=== PATIENT | female | born 1950 | race Caucasian/White ===

== ENCOUNTER → 2025-01-26 | Outpatient (CLI) | payer MEDICARE ==
[2025-01-27 10:28] LABS: Alanine Aminotransfer (ALT/SGP 25 U/L (12-78); Albumin, Blood 4.2 g/dL (3.4-5.0); Albumin/Globulin Ratio 1.6 (0.8-1.8); Anion Gap 12 mmol/L (3-11); Aspartate Aminotrans (AST/SGOT 21 U/L (12-37); Bilirubin, Total 0.6 mg/dL (0.1-1.0); Blood Urea Nitrogen 19 mg/dL (8-24); CHOL/HDL RATIO 3.6; CO2, Blood 23 mmol/L (21-32); Calcium, Blood 8.6 mg/dL (8.5-10.1); Chloride, Blood 105 mmol/L (98-108); Cholesterol 211 mg/dL (50-200); Creatinine, Blood 0.93 mg/dL (0.40-1.00); Globulin, Blood 2.7 g/dL (2.2-4.0); Glucose, Blood 134 mg/dL (70-99); HDL Cholesterol 59 mg/dL (>39); LDL/HDL RATIO 1.7; Low Density Lipoprotein Chol 101 mg/dL (0-110); Potassium, Blood 3.9 mmol/L (3.5-5.5); Sodium, Blood 136 mmol/L (136-145); Total Protein, Blood 6.9 g/dL (6.4-8.2); Triglycerides 256 mg/dL (30-160); Very Low Density Lipoprot Chol 51 mg/dL (6-32)
== END ==
LOC: LAB 14:08 → LAB SHORT 14:08
PROVIDERS: Nurse Practitioner Family
DX: E11.69 Type 2 diabetes mellitus with other specified complication (principal); E78.5 Hyperlipidemia, unspecified; Z88.8 Allergy status to other drugs, medicaments and biological substances
CPT/HCPCS: 80053; 80061

== ENCOUNTER 2025-03-19 11:37 | Day surgery (SDC) | payer MEDICARE ==
[~2025-03-19] VITALS: Ht 165.1 cm; Wt 74.2 kg
[~2025-03-19 11:37] MED LIST: Lidocaine HCl 2% 10 ML SDA ONE
[2025-03-19] MEDS ORDERED: BASAGLAR K100 UNIT/8 (11:57)
[2025-03-19] MEDS ORDERED: LISI20 (11:57)
[2025-03-19] MEDS ORDERED: DEXCOM G7 SENS1 EACH (11:58)
[2025-03-19] MEDS ORDERED: VALA500 (11:58)
[2025-03-19] MEDS ORDERED: VITAMIN D350 MC3 (11:58)
[2025-03-19] MEDS ORDERED: POLY500 (11:59)
[2025-03-19] MEDS ORDERED: NIAC500 (11:59)
[2025-03-19 12:29] VITALS: BP 146/62
[2025-03-19] MEDS ORDERED: CeFAZolin Sodium 2,000 MG VIAL ONE (12:40)
[2025-03-19] MEDS ORDERED: Phenylephrine HCl 100 MCG/ML-NS 10MLSYR (1MG/10ML) ONE (13:14)
[2025-03-19] MEDS ORDERED: Ondansetron HCl 2 MG / ML 2ML Vial ONE (13:14)
[2025-03-19] MEDS ORDERED: Dexamethasone Sod Phos 10 MG/ML 1ML VIAL ONE (13:14)
[2025-03-19] MEDS ORDERED: FentaNYL Citrate 50 MCG/ML 2 ML Injection ONE (13:40)
[2025-03-19] MEDS ORDERED: Lidocaine HCl 2% 10 ML SDA ONE (13:45)
[2025-03-19] MEDS ORDERED: Bupivacaine 0.5% W/EPI 1:200000 SDV 10ML INJ ONE (13:55)
== END 2025-03-19 16:16 | disposition home or self-care (01) ==
LOC: ORSCSDS 11:37
PROVIDERS: Podiatrist Foot & Ankle Surgery
PROC: 0Q8P0ZZ Division of Left Metatarsal, Open Approach (ICD-10-PCS; principal; 2025-03-19 13:00)
PROC: 0QSR04Z Reposition Left Toe Phalanx with Internal Fixation Device, Open Approach (ICD-10-PCS; principal; 2025-03-19 13:00)
PROC: 0QSP04Z Reposition Left Metatarsal with Internal Fixation Device, Open Approach (ICD-10-PCS; principal; 2025-03-19 13:00)
PROC: 0L8W0ZZ Division of Left Foot Tendon, Open Approach (ICD-10-PCS; principal; 2025-03-19 13:00)
DX: M20.12 Hallux valgus (acquired), left foot (principal); M77.42 Metatarsalgia, left foot; M20.62 Acquired deformities of toe(s), unspecified, left foot; M79.675 Pain in left toe(s); M20.42 Other hammer toe(s) (acquired), left foot; I10 Essential (primary) hypertension; G47.33 Obstructive sleep apnea (adult) (pediatric); E11.9 Type 2 diabetes mellitus without complications; Z79.4 Long term (current) use of insulin; Z79.899 Other long term (current) drug therapy
CPT/HCPCS: 82947; A6253; C1713; C1769; J0690; J1100; J2003; J2371; J2405; J2704; J3010; J7120